=== PATIENT | female | born 1980 | race Caucasian/White ===

== ENCOUNTER → 2016-12-26 | Outpatient (CLI) | payer MEDICAID ==
[2017-01-05 16:08] LABS: HPV 16 Not Detected (NOTDET); HPV 18 Not Detected (NOTDET)
== END ==
LOC: MW.CHOBGYN 16:18
PROVIDERS: ATTEND Nurse Practitioner Women's Health
DX: Z11.3 Encounter for screening for infections with a predominantly sexual mode of transmission (principal); N89.8 Other specified noninflammatory disorders of vagina
CPT/HCPCS: 36415; 84703; 86592; 86803; 87389; 87480; 87491; 87510; 87591; 87624; 87660; G0145

== ENCOUNTER 2017-01-17 15:15 | Emergency (ER) | payer MEDICAID ==
--- NOTE | 2017-01-17 15:35 | EDM.PDOC ---
ED HPI GENERAL MEDICAL PROBLEM - General Chief Complaint: Back Pain or Injury Stated Complaint: BACK PAIN Time Seen by Provider: 01/17/17 15:32 Source of Information: Reports: Patient - History of Present Illness INITIAL COMMENTS - FREE TEXT/NARRATIVE: HISTORY AND PHYSICAL: History of present illness: [] Patient presents with chronic back pain she rates 7/10 with radiation down the right leg no foot drop saddle anesthesia bowel or urine symptoms She has history of L5-S1 disc bulge, MRI is on file, she plans to followup with Dr. Hartmann and in the pain clinic, at current she is requesting nonnarcotic medication No fever nausea vomiting chills sweats no new injury or trauma Review of systems: As per history of present illness and below otherwise all systems reviewed and negative. Past medical history: As per history of present illness and as reviewed below otherwise noncontributory. Surgical history: As per history of present illness and as reviewed below otherwise noncontributory. Social history: No reported history of drug or alcohol abuse. Family history: As per history of present illness and as reviewed below otherwise noncontributory. Physical exam: HEENT: Atraumatic, normocephalic, pupils reactive, negative for conjunctival pallor or scleral icterus, mucous membranes moist, throat clear, neck supple, nontender, trachea midline. Lungs: Clear to auscultation, breath sounds equal bilaterally, chest nontender. Heart: S1S2, regular, negative for clicks, rubs, or JVD. Abdomen: Soft, nondistended, nontender. Negative for masses or hepatosplenomegaly. Negative for costovertebral tenderness. Pelvis: Stable nontender. 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: Deferred. Rectal: Deferred. Extremities: Atraumatic, negative for cords or calf pain. Neurovascular unremarkable. Straight leg raise to 60 without radiculopathy no footdrop saddle anesthesia bowel or urine symptoms Neuro: Awake, alert, oriented. Cranial nerves II through XII unremarkable. Cerebellum unremarkable. Motor and sensory unremarkable throughout. Exam nonfocal. Diagnostics: [] None Therapeutics: [] Toradol 60 IM Medrol Dosepak Toradol 10 mg by mouth 3 times a day when necessary #15 no refill Impression: [] Chronic low back pain Definitive disposition and diagnosis as appropriate pending reevaluation and review of above. 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 History: Reports: Hypertension [employer]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 ED EXAM, GENERAL - Physical Exam Exam: See Below Course - Vital Signs Last Recorded V/S: Last Vital Signs Temp 37.1 C 01/17/17 15:26 Pulse 109 H 01/17/17 15:26 Resp 16 01/17/17 15:26 BP 141/86 H 01/17/17 15:26 Pulse Ox 100 01/17/17 15:26 Departure - Departure Time of Disposition: 15:34 Disposition: Home, Self-Care 01 Condition: good Clinical Impression: Low back pain - Discharge Information Forms: ED Department Discharge Additional Instructions: Medication as prescribed Return if symptoms persist or worsen Followup with Dr. Mason as scheduled The following information is given to patients seen in the emergency department who are being discharged to home. This information is to outline your options for follow-up care. We provide all patients seen in our emergency department with a follow-up referral. The need for follow-up, as well as the timing and circumstances, are variable depending upon the specifics of your emergency department visit. If you don't have a primary care physician on staff, we will provide you with a referral. We always advise you to contact your personal physician following an emergency department visit to inform them of the circumstance of the visit and for follow-up with them and/or the need for any referrals to a consulting specialist. The emergency department will also refer you to a specialist when appropriate. This referral assures that you have the opportunity for follow-up care with a specialist. All of these measure are taken in an effort to provide you with optimal care, which includes your follow-up. Under all circumstances we always encourage you to contact your private physician who remains a resource for coordinating your care. When calling for follow-up care, please make the office aware that this follow-up is from your recent emergency room visit. If for any reason you are refused follow-up, please contact the [facility] emergency department at and asked to speak to the emergency department charge nurse.
[2017-01-17] MEDS ORDERED: Ketorolac 60 MG/2 ML SDV IM ONE (15:37)
[2017-01-17 16:08] VITALS: BP 154/93
== END 2017-01-17 16:05 | disposition home or self-care (01) ==
LOC: MW.ED 15:15
DX: M54.5 Low back pain (principal); I10 Essential (primary) hypertension; F41.9 Anxiety disorder, unspecified; F17.210 Nicotine dependence, cigarettes, uncomplicated; Z79.899 Other long term (current) drug therapy; Z88.0 Allergy status to penicillin
CPT/HCPCS: 96372; 99283; J1885

== ENCOUNTER 2019-02-20 01:44 | Emergency (ER) | payer MEDICAID ==
[2019-02-20] MEDS ORDERED: EPINEPHrine 1:10,000 1 MG/10 ML Syringe IV ONE (01:45)
[2019-02-20] MEDS ORDERED: Atropine 0.1 MG/ML 10 ML Syringe IVPUSH ONE (01:45)
[2019-02-20] MEDS ORDERED: Sodium Bicarbonate 8.4% 50 MEQ/50 ML Syringe IVPUSH ONE ×2 (01:45→02:00)
[2019-02-20] MEDS ORDERED: EPINEPHrine 1 MG/1 ML Amp IVPUSH ONE (02:00)
[2019-02-20] MEDS ORDERED: Sodium Chloride 0.9% 1,000 ML IV SCH (02:00)
[2019-02-20] MEDS ORDERED: Sodium Chloride 0.9% 1,000 ML IV ONE ×3 (02:00)
--- NOTE | 2019-02-20 02:05 | EDM.PDOC ---
ED HPI GENERAL MEDICAL PROBLEM - General Chief Complaint: Trauma Stated Complaint: AMB Time Seen by Provider: 02/20/19 01:59 - History of Present Illness INITIAL COMMENTS - FREE TEXT/NARRATIVE: Patient is a 38-year-old white female with an unknown past medical history is reported B approximately 6 months who was reported to have a witnessed cardiopulmonary arrest CPR was initiated reportedly within 5 minutes EMS on the scene resuscitated patient told transport time was 30 minutes patient was pulseless through this resuscitation per paramedics was reported to be in [place] on arrival patient was pulseless ACLS was continued central line was placed by myself in her right femoral vein 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 in breath sounds remained equal bilaterally patient was given another appendectomy in 1 amp bicarbonate patient had a return of her pulse with a rate 136 with a current blood pressure of systolic 130 on physical exam patient has blood coming from her left nares pupils are reactive but sluggish trachea is midline lungs are coarse breath sounds are present bilaterally heart S1-S2 abdomen has obvious gravid uterus heart tones are 80 pelvis is stable extremities are atraumatic other than intraosseous which was received by myself neurologically patient remains unresponsive I discussed case with Dr. Foss at [facility] emergency department graciously accepted the patient for transport aeromedical was initiated shortly after patient's arrival and is in route impression is #1 status post cardiopulmonary arrest #2 history of 24 week intrauterine . Please see nursing notes for further history is available as well as resuscitative notes. - Related Data Allergies Allergy/AdvReac Type Severity Reaction Status Date / Time Penicillins Allergy Rash Verified 01/17/17 15:25 Home Meds: Home Meds Albuterol Sulfate [Vospire ER] 2 puff INH Q4H PRN 09/28/14 [History] Hydrocodone/Acetaminophen [Hydrocodon-Acetaminophn 10-325] 1 tab PO QID [History] Losartan/Hydrochlorothiazide [Losartan-HCTZ 100-25 MG] 100 mg PO DAILY 09/28/14 [History] amLODIPine [Norvasc] 1 tab PO DAILY 09/28/14 [History] ALPRAZolam [Xanax] 1 mg PO ONETIME 06/25/15 [History] Past Medical History HEENT History: Reports: None Cardiovascular History: Reports: Hypertension Respiratory History: Reports: None Gastrointestinal History: Reports: None 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 History: Reports: 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: Musculoskeletal History: Reports: Back Pain, Chronic Neurological History: Reports: None Psychiatric History: Reports: Anxiety Endocrine/Metabolic History: Reports: None Hematologic History: Reports: None Immunologic History: Reports: None Oncologic (Cancer) History: Reports: None Dermatologic History: Reports: None - Infectious Disease History Infectious Disease History: Reports: Chicken Pox - Past Surgical History Head Surgeries/Procedures: Reports: None Social & Family History - Family History Family Medical History: Noncontributory - Caffeine Use Caffeine Use: Reports: Soda Review of Systems - Review of Systems Review Of Systems: See Below (Unknown) ED EXAM, GENERAL - Physical Exam Exam: See Below (As per dictation) Course - Orders/Labs/Meds Orders: Active Orders 24 hr Category Date Time Status EKG Documentation Completion [RC] STAT Care 02/20/19 01:56 Active Chest 1V Frontal [CR] Stat Exams 02/20/19 01:57 Ordered BLOOD GAS ARTERIAL [BG] Stat Lab 02/20/19 01:57 Ordered CBC WITH AUTO DIFF [HEME] Stat Lab 02/20/19 01:56 Ordered COMPREHENSIVE METABOLIC PN,CMP [CHEM] Stat Lab 02/20/19 01:56 Ordered INR,PT,PROTHROMBIN TIME [COAG] Stat Lab 02/20/19 01:57 Ordered TROPONIN I [CHEM] Stat Lab 02/20/19 01:56 Ordered Departure - Departure Time of Disposition: 02:04 Disposition: DC/[facility] to [facility] 02 Condition: Critical Clinical Impression: Cardiopulmonary arrest with successful resuscitation - Discharge Information - My Orders Last 24 Hours: My Active Orders 02/20/19 01:56 EKG Documentation Completion [RC] STAT CBC WITH AUTO DIFF [HEME] Stat COMPREHENSIVE METABOLIC PN,CMP [CHEM] Stat TROPONIN I [CHEM] Stat 02/20/19 01:57 Chest 1V Frontal [CR] Stat BLOOD GAS ARTERIAL [BG] Stat INR,PT,PROTHROMBIN TIME [COAG] Stat - Assessment/Plan Last 24 Hours: My Active Orders 02/20/19 01:56 EKG Documentation Completion [RC] STAT CBC WITH AUTO DIFF [HEME] Stat COMPREHENSIVE METABOLIC PN,CMP [CHEM] Stat TROPONIN I [CHEM] Stat 02/20/19 01:57 Chest 1V Frontal [CR] Stat BLOOD GAS ARTERIAL [BG] Stat INR,PT,PROTHROMBIN TIME [COAG] Stat
--- NOTE | 2019-02-20 02:07 | PCM.SN ---
- Free Text/Narrative Note: Called to ER for 6 month patient in cardiac arrest; EMS reporting bystanders claim she had just taken "meth" before collapsing. On arrival ETT in place at 27 cm at the lip. Rt breath sounds were noted, absent Lt breath sounds, ETT was withdrawn to 23 cm at the lip. Bilateral breath sounds are now present. +EtCO2 57 currently. CXR Pending at this time. ABG was drawn by me from Rt Radial arterial.
--- NOTE | 2019-02-20 02:12 | CR ---
INDICATION: Cardiac arrest, 26 weeks , overdose TECHNIQUE: Chest radiograph 1 view COMPARISON: None FINDINGS: Mediastinum: The mediastinum is normal in appearance. The heart silhouette is normal in size and morphology. NG tube present with tip in the gastric fundus. Lung: Moderate fluffy airspace infiltrates are present in both lungs which may be due to cardiogenic or noncardiogenic pulmonary edema. No sign of pleural effusion seen. No pneumothorax is identified. IMPRESSION: 1. Moderate fluffy airspace infiltrates are present in both lungs which may be due to cardiogenic or noncardiogenic pulmonary edema. Dictated by Ricco Garcia MD @ 02/20/2019 2:11:36 AM Dictated by: Ricco Garcia MD @ 02/20/2019 02:11:38 (Electronically Signed)
[2019-02-20 02:14] LABS: CHLORIDE,CL 103 mmol/L (98-107); SODIUM,NA 137 mmol/L (136-145)
[2019-02-20] MEDS ORDERED: Magnesium Sulfate/Water 100 ML ONE (02:26)
[2019-02-20] MEDS ORDERED: Magnesium Sulfate/Water 4 GM in Premix Bag 1 BAG IV ONE (02:30)
[2019-02-20] MEDS ORDERED: hydrALAZINE 20 MG/ML SDV ONE (02:30)
[2019-02-20] MEDS ORDERED: hydrALAZINE 20 MG/ML SDV IVPUSH ONE (02:35)
== END 2019-02-20 02:45 ==
LOC: MW.ED 01:44
DX: I46.9 Cardiac arrest, cause unspecified (principal); I10 Essential (primary) hypertension; Z79.899 Other long term (current) drug therapy; Z88.0 Allergy status to penicillin
CPT/HCPCS: 36415; 36600; 51702; 71045; 80053; 80305; 81001; 82803; 84484; 85025; 85610; 92950; 96360; 99291; J0171; J0360; J0461; J3475; 36556; 99285